=== PATIENT | female | born 1980 | race Caucasian/White ===

== ENCOUNTER 2016-08-26 19:05 | Emergency (ER) | payer MEDICARE, MEDICAID ==
[~2016-08-26] VITALS: Ht 167.6 cm; Wt 105.0 kg
[~2016-08-26 19:05] MED LIST: PROM25TA14 PO
[2016-08-26 19:17] VITALS: BP 119/57; PULSE 97; RESP 20; O2SAT 94
--- NOTE | 2016-08-26 20:35 | ED.REPORT ---
HPI-Extremity Problem Lower Date of Service August 26, 2016 ED Provider: Jamison Morales PA-C Anca is otherwise healthy 36-year-old female tripped in with a chief complaint of increasing right foot pain 2 days status post surgery. Patient reports a burning sensation that encircles the back of her heel. She reports his pain is quite severe and prevents her from sleeping. She had surgery performed [address] Carr to repair torn ligaments on the lateral aspect of her ankle and to reduce her arch. She has been attempting to treat the pain with oxycodone/acetaminophen 10 mg/325 mg. She is also taking aspirin 324 mg. Denies fevers, numbness/tingling in her toes, cold toes. Nursing Notes Stated Complaint: PAIN AT SURGERY SITE,R/FOOT Chief Complaint: Extremity Trauma Nursing Notes Reviewed: Yes Allergies: Coded Allergies: Sulfa (Sulfonamide Antibiotics) (Verified Allergy, Unknown, 03/29/15) ketorolac (Verified Allergy, Unknown, 03/29/15) Scheduled PRN Promethazine (Promethazine) 25 Mg Tablet 25 MG PO Q6H PRN PRN For Nausea oxyCODONE (oxyCODONE) 5 Mg Tablet 5-10 MG PO QID PRN PRN For Pain General Time Seen by MD: 19:57 Chief Complaint Ankle injury right Past Medical History Past Medical History PID ICE with bladder stimulant Past Surgical History Fallopian tubes removed. R oopherectomy. Reports: Appendectomy Smoking History Never Smoker Social History Alcohol Use: Denies alcohol use Drug Use: Denies drug use Review of Systems Review of Systems Note: Negative unless stated otherwise in history of present illness Physical Exam General: Well appearing, well developed, well nourished, mild distress. Right foot: Presents in a well-built splint. Brisk capillary refills and sensation intact to toes. Upon removing the splint I find the expected bloody gauze. Surgical sites are clean and dry with only minimal erythema. There is erythema of slightly increased redness on the medial aspect of the calcaneus, in the region of the patient indicates a burning sensation. Ankle is swollen with bruising on the lateral aspect. DP pulse is 2+. PT pulse not appreciated. Calf is supple and nontender. Head: Atraumatic, normocephalic. Eyes: No scleral icterus or injection. No discharge. Vision grossly intact. ENT: Voice clear, hearing grossly intact. Respiratory: Regular rate and rhythm. No respiratory distress. No increased work of breathing, speaks in complete sentences. Skin: Warm and dry. Neurological: Grossly nonfocal. Psychological: Alert and oriented. Speech appropriate, linear and logical. Behavior appropriate. Mildly anxious. Initial Vital Signs Vital Signs (First) Date Time Temp Pulse Resp B/P Pulse Ox O2 Delivery O2 Flow Rate FiO2 08/26/16 19:17 36.3 97 20 119/57 94 Room Air Initial VS: Vital signs normal Re-Eval/Medical Decision Med Decision/Clinical Course 36-year-old female patient with chief complaint of right foot pain 2 days status post surgery to repair torn ligaments, reduce arch. Presents with a splint, toes are warm with brisk capillary refill and sensation intact. It is removed to reveal incisions that appear to be healing quite well. No indication of infection or compartment syndrome. I discussed his case with Dr. Gipson who met with and examined the patient. We agree that she is progressing well and would benefit from a new splint. Dr. Andrea anabolic ointment and nonadherent gauze. Leg was placed in a long posterior leg and stirrup splint with generous padding by technicians. The chelation and sensation is assessed by me and found to be intact. Patient reports a ketorolac allergy, however she reports she takes ibuprofen without a reaction. She consents to being treated with ibuprofen. Patient feels improved after an milligrams ibuprofen, 1000 mg acetaminophen, 10 mg oxycodone and radial be discharged to home. Instructed patient to follow-up with her orthopedic surgeon, provided emergency return precautions and analgesia instructions as well as a prescription for a small amount of oxycodone with precautions. Patient verbalizes understanding of and consent to the plan. Differential Diagnosis: Negative: Abscess, Arterial occlus/ischemia, Cellulitis , Compartment syndrome, Knee effusion Discharge & Departure Impression: Primary Impression: Acute postoperative pain of right foot Disposition: Home Discharge Condition All VS Reviewed: Yes Condition: Stable Patient Instructions: Splint Care (ED) Additional Instructions: Evaluation for right foot pain in the emergency department includes a history and physical examination, both of which are reassuring that your foot appears to be healing well. We have removed your splint and replaced it with a new one to accommodate the swelling. Keep the right foot elevated above the level of the heart as much as possible over the next several days. This will reduce swelling and pain. Continue taking the pain medication provided by orthopedic surgeon as directed. To this you should add 600 mg of ibuprofen taken every 6 hours. I will also write a prescription for oxycodone IR (this is similar to the medication already prescribed, but does not contain acetaminophen). You can take 1-2 of these every 6 hours for pain not controlled by the other medication. Follow-up with your orthopedic surgeon early next week as you have planned. Return to emergency department for any new or worsening symptoms including increasing pain, fever, or cold/numb toes. Referrals: OTHER,PHYSICIAN Dr. Carr, orthopedic surgeon EDSupervising Provider for APC: Jerel Gipson MD Attending Statement This is a patient initially seen by the mid-level provider. However I personally interviewed and examined the patient. She is postop surgical prevention of the foot. The splint was removed, and is quite possible that the splint was no longer feeling well also has been fairly significant swelling of the foot postoperatively. However I do not appreciate any signs of cellulitis infection or wound infection. The foot is swollen where the procedures performed, but there is no evidence of calf involvement, no signs of compartment syndrome. I suspect some of the symptoms is from the wearing off of the nerve block and the amount of swelling to need to re-fit and pad of the cast but to clear around the heel. A new splint was formed and the extensive padding. The wounds look excellent with no clinical signs of infection or complication. They were redressed. We emphasized again keeping the leg elevated as much as possible to reduce further swelling in symptoms. I provided a few extra pain medicines, but anticipate that symptoms did start to improve this is the maximal point of swelling. Return precautions reviewed. She is discharged in improved condition Jamison Morales PA-C August 26, 2016 20:35 Jerel Gipson MD August 26, 2016 22:28
[2016-08-26 20:37] VITALS: BP 124/77; PULSE 93; O2SAT 97
[2016-08-26] MEDS ORDERED: OXYC5TAB72 PO (21:03)
[2016-08-26 21:40] VITALS: BP 119/64; PULSE 84; O2SAT 95
== END 2016-08-26 21:41 | disposition home or self-care (01) ==
LOC: SED 19:05
DX: G89.18 Other acute postprocedural pain (principal); M79.671 Pain in right foot; Z98.890 Other specified postprocedural states; Z79.82 Long term (current) use of aspirin; Z88.2 Allergy status to sulfonamides; Z88.6 Allergy status to analgesic agent

== ENCOUNTER 2016-08-30 10:09 | Emergency (ER) | payer MEDICARE, MEDICAID ==
[~2016-08-30] VITALS: Ht 167.6 cm; Wt 105.0 kg
[~2016-08-30 10:09] MED LIST changes: +OXYC5TAB72 PO
[2016-08-30 10:11] VITALS: BP 152/96; PULSE 124; RESP 16; O2SAT 97
[2016-08-30] MEDS ORDERED: Ondansetron 8 mg ODT Tablet ONE ×2 (10:59→13:31)
--- NOTE | 2016-08-30 11:28 | ED.REPORT ---
HPI-Extremity Problem Lower Date of Service August 30, 2016 ED Provider: Jamison Morales PA-C Anca is a 36-year-old female with a history of chronic pain presenting with a chief complaint of right foot pain approximately 4 days status post surgery. Patient reports increasing pain with standing, her toes "turning purple" and experiencing pain that makes her "want to pass out." She admits to tingling in her toes with extended periods of elevation. Complains of nausea. Denies vomiting, abdominal pain, fever. Patient recovered from surgery to repair lateral ligaments of her ankle as well as reduce her arch, performed by Dr. Carr at [facility]. Seen in this department 2 days ago, splint was removed and replaced. No concern for infection or compartment syndrome at that time. She reports speaking to her physician yesterday and being asked to present to the emergency department. She reports she has a follow-up appointment at the end of this week. Nursing Notes Stated Complaint: RT LEG PAIN Chief Complaint: Extremity Trauma Nursing Notes Reviewed: Yes Allergies: Coded Allergies: Sulfa (Sulfonamide Antibiotics) (Verified Allergy, Unknown, 03/29/15) ketorolac (Verified Allergy, Unknown, 03/29/15) Scheduled PRN Promethazine (Promethazine) 25 Mg Tablet 25 MG PO Q6H PRN PRN For Nausea oxyCODONE (oxyCODONE) 5 Mg Tablet 5-10 MG PO QID PRN PRN For Pain General Time Seen by MD: 11:03 Chief Complaint Ankle injury right Past Medical History Past Medical History PID ICE with bladder stimulant Past Surgical History Fallopian tubes removed. R oopherectomy. Reports: Appendectomy Smoking History Never Smoker Social History Alcohol Use: Denies alcohol use Drug Use: Denies drug use Review of Systems Negative unless stated otherwise in history of present illness Physical Exam General: Well appearing, well developed, well nourished, mild distress. Moderate anxiety. Right ankle: Presents in a clean, well formed splint with brisk capillary refill , warm toes and sensation intact. Skin is removed to reveal significant bruising from approximately mid jones to midfoot, which is starting to turn yellow/green at the margins. Incisions at the medial and lateral aspect of the foot reveal a small amount of bloody discharge with bandages overall dry. No indication of redness, swelling, purulent discharge. Foot is diffusely tender. DP pulse 2+, PT pulse not appreciated as this region is quite swollen and tender. Toes are warm with brisk capillary refill and sensation. Painless active and passive range of motion of the toes. Compartments are soft. Eyes: No scleral icterus or injection. No discharge. Vision grossly intact. ENT: Voice clear, hearing grossly intact. Respiratory: Regular rate and rhythm. Breath sounds present, clear to auscultation and equal bilaterally. No respiratory distress. No increased work of breathing, speaks in complete sentences. Cardiovascular: Regular rate (88 BPM) and rhythm, without murmur, gallop or rub. No pedal edema. Gastrointestinal: Abdomen flat and non-tender without guarding or rebound. Bowel sounds normoactive. Skin: Warm and dry. Neurological: Grossly nonfocal. Psychological: Alert and oriented. Speech appropriate, linear and logical. Behavior appropriate. Initial Vital Signs Vital Signs (First) Date Time Temp Pulse Resp B/P Pulse Ox O2 Delivery O2 Flow Rate FiO2 08/30/16 10:11 36.2 124 16 152/96 97 Room Air Initial VS: Vital signs abnormal (tachycardia) Procedures Splint Application - Fx Mgt Procedure Performed by: Parts Finisher Precise Anatomic Location: Right lower leg Type of Immobilization: Ortho-glass (posterior leg with stirrup) Post-Procedure / Complications: Post splint vascular nl, Post splint neuro nl, Condition improved, Tolerated procedure well, Patient stable Re-Eval/Medical Decision Med Decision/Clinical Course This patient's file lists ketorolac as an allergy. At this patient's previous visit we discussed her allergy and she tells me that she takes ibuprofen on a regular basis. Consented to being treated with ibuprofen at that time. 36-year-old female with a history of chronic pain returns to emergency department for continuing postsurgical pain in her right foot. Patient is 4 days status post surgery to repair ligaments and DCR to her right foot. In this department 2 days ago for similar complaints, with a new splint applied. Splint is intact and clean, toes warm with brisk capillary refill and sensation intact. Splint is removed, no indication of infection or compartment syndrome. Tachycardia noted at triage is resolved. I discussed this case with the resident at her integrated specialist's office who reports that she has been paging her physician daily pain complaints. Patient's report of analgesia use is not consistent with her discharge instructions from this facility. She is not requesting opiate analgesia, and her provider does not recommend a change to her regimen. She does state that in the absence of compartment syndrome or infection the patient should be resplinted and discharged to follow-up at the end of this week as planned. Patient is treated according to these recommendations, as I see no indication of infection or compartment syndrome. Splint is applied by alarm installation technician, checked by me to confirm brisk capillary refill and sensation intact. Discharged with instructions to follow-up with podiatry as planned, emergent return precautions, advised continuing current analgesic regimen. Provided reassurance that this is the normal progression of a fairly major surgery. Patient verbalizes understanding of and consented to plan Consultation #1: Call Returned at: 11:55 Note: Discussed this case with Dr. Turner, an associate of Dr. Carr of the patient's integrated specialist. He cannot provide any insight into the patient's history, specifically concerning opiate use. He feels the assessment is reasonable and she should be resplinted and seen in clinic. Offers to contact Dr. Carr or one of the residents for further insight. Consultation #2: Call Returned at: 12:08 Note: I discussed this case with Dr. La, podiatry resident working with Dr. Carr. She spoke with Dr. Carr who advises that the patient does not have compartment syndrome or infection she is safe to be discharged. Reports she has been paging him daily regarding pain complaints. Reports that she is on a pain contract and advises against altering her pain regimen. Discharge & Departure Impression: Primary Impression: Acute postoperative pain of right foot Disposition: Home Discharge Condition All VS Reviewed: Yes Condition: Stable Patient Instructions: Splint Care (ED) Additional Instructions: Evaluation for right foot pain in the emergency department includes history and physical examination, both of which are reassuring that your recovery is progressing as expected. There is no indication of infection or compartment syndrome. Later stable and safe to be sent home. We have resplinted the leg. Continue treating the pain as we discussed previously. Take 1 of the pain medications provided by Dr. Carr every 6 hours as well as 600 mg of ibuprofen. You can add 1-2 of the oxycodone tablets previously prescribed every 6 hours for pain not controlled by other medications. Do not drive or drink alcohol within 4 hours of taking these medications. Follow-up with your integrated specialist as previously arranged. Return to the emergency department for increasing pain, pain with flexion of your toes, fever or the development of a cold/foot. Referrals: OTHER,PHYSICIAN Dr. Carr, integrated specialist EDSupervising Provider for APC: Binu Jennings Seth PA-C August 30, 2016 11:28
== END 2016-08-30 14:23 | disposition home or self-care (01) ==
LOC: SED 10:09
DX: G89.18 Other acute postprocedural pain (principal); M79.671 Pain in right foot; R20.2 Paresthesia of skin; R11.0 Nausea; Z88.2 Allergy status to sulfonamides; Z88.6 Allergy status to analgesic agent